=== PATIENT | female | born 1935 | race Caucasian/White ===

== ENCOUNTER 2017-08-03 12:00 | Inpatient (IN) ==
[2017-08-03 12:51] LABS: Basophils % 0.1 %; Eosinophils # 0.1 K/mcL (0.0-0.6); Eosinophils % 0.8 %; Hematocrit 37.5 % (35.3-44.9); Hemoglobin 11.1 g/dL (11.5-15.4); Immature Granulocytes % 0.5 % (0-4); Lymphocytes # 1.6 K/mcL (0.6-4.6); Lymphocytes % 20.9 %; Mean Corpuscular HGB Conc 29.6 g/dL (31.6-35.5); Mean Corpuscular Hemoglobin 25.1 pg (28.0-33.3); Mean Corpuscular Volume 84.8 fL (83.0-100.0); Mean Platelet Volume 11.8 fL (9.4-12.4); Monocytes # 0.6 K/mcL (0.0-1.3); Monocytes % 8.4 %; Neutrophils # 5.1 K/mcL (1.6-8.9); Platelet Count 160 K/mcL (140-400); Red Blood Count 4.42 M/mcL (3.82-4.97); Red Cell Distribution Width 15.8 % (11.5-14.5); Segmented Neutrophils % 69.3 %
[2017-08-03 13:04] LABS: BUN/Creatinine Ratio 20 (6-26); Blood Urea Nitrogen 16 mg/dL (7-20); Calcium 8.1 mg/dL (8.6-10.8); Carbon Dioxide 27 mEq/L (19-29); Chloride 102 mEq/L (98-109); Glucose 169 mg/dL (70-99); Osmolality,Calculated 285 (280-300); Potassium 4.2 mEq/L (3.5-4.5); Sodium 135 mEq/L (136-145); eGFR For African Americans > 60 (> 60); eGFR For Non-African Americans > 60 (> 60)
[2017-08-03 13:53] LABS: Bilirubin,Urine Negative (Negative); Blood,Urine Negative (Negative); Clarity,Urine Clear (Clear); Color,Urine Yellow (Yellow); Glucose,Urine (UA) Normal (Normal); Ketones,Urine Negative (Negative); Leukocyte Esterase,Urine Negative (Negative); Nitrite,Urine Negative (Negative); PH,Urine 6.5 pH Units (5.0-8.0); Protein,Urine Negative (Neg-Trace); Specific Gravity,Urine 1.012 (1.010-1.025); Urobilinogen,Urine Normal (Normal)
--- NOTE | 2017-08-03 14:52 | Emergency Department Note ---
Disposition Clinical Impression: Lower extremity edema Atrial fibrillation Qualifiers: Atrial fibrillation type: unspecified Qualified Code(s): I48.91 - Unspecified atrial fibrillation Disposition: Admitted As Inpatient Condition: Good Extremity Problem HPI - General Chief complaint: ED Extremity Problem,Nontraumatic Stated complaint: Bilateral leg swelling Time Seen by Provider: 08/03/17 12:08 Source: patient Mode of arrival: ambulatory Limitations: physical limitation Nursing Notes Reviewed: Yes Vital Signs Reviewed: Yes - History of Present Illness Pain Scale: 0 - Related Data Home Medications Medication Instructions Recorded Confirmed Cyclosporine [Restasis] 1 each OP BID 01/07/16 08/03/17 Metoprolol XL (24 HR) Succ [Toprol 50 mg PO DAILY 01/07/16 08/03/17 Xl] Phenytoin ER [Dilantin ER] 400 mg PO DAILY 01/07/16 08/03/17 Prazosin [Minipress] 1 mg PO BID 01/07/16 08/03/17 Sertraline [Zoloft] 100 mg PO DAILY 01/07/16 08/03/17 Cyanocobalamin (Vitamin B-12) 1,000 mcg PO DAILY 08/03/17 08/03/17 [Vitamin B12] Furosemide [Lasix] 40 mg PO DAILY 08/03/17 08/03/17 Glimepiride [Amaryl] 4 mg PO BID 08/03/17 08/03/17 Levothyroxine [Synthroid] 50 mcg PO 0630 08/03/17 08/03/17 Potassium Chloride [K-Tab ER] 20 meq PO DAILY 08/03/17 08/03/17 Allergies Allergy/AdvReac Type Severity Reaction Status Date / Time No Known Allergies Allergy Verified 01/07/16 15:15 Past Medical History - Past Medical History Medical history: Reports: COPD, CVA, diabetes, hyperlipidemia, hypertension, myocardial infarction, thyroid disease Surgical history: Reports: orthopedic, other, ARIANNA/BSO Psychiatric history: Reports: anxiety, depression - Social History Smoking Status: Former smoker Smokeless Tobacco Status: No Alcohol use: Reports: none Drug use: Reports: none Physical Exam - General Limitations: physical limitation General appearance: alert Course Vital Signs Temperature 97.9 F 08/03/17 12:03 Pulse Rate 99 08/03/17 12:03 Respiratory Rate 18 08/03/17 12:03 Blood Pressure 127/81 08/03/17 12:03 O2 Sat by Pulse Oximetry 90 08/03/17 12:03 Temperature 98.0 F 08/03/17 20:29 Pulse Rate 107 08/03/17 20:29 Respiratory Rate 16 08/03/17 20:29 Blood Pressure 124/58 08/03/17 20:29 O2 Sat by Pulse Oximetry 94 08/03/17 20:29 Oxygen Delivery Oxygen Delivery Room Air Extremity Problem, Nontraumati - [facility] Narrative Medical decision making narrative: Patient states that she is weak and fatigued. She states that her bilateral lower extremities are significantly more edematous. A formal ultrasound of the bilateral lower extremities was ordered to rule out DVT however this was a technically difficult study and they were unable to completely visualize the deep venous vasculature. Patient does have new onset atrial fibrillation. She however is already on Coumadin and is rate controlled. Patient will be admitted for further evaluation of her weakness and bilateral lower extremity edema for likely diuresis. - Medical Records Medical records reviewed: Yes I reviewed the patient's medical records. - Lab Data Lab results reviewed: Yes I reviewed the patient's lab results. Result diagrams: 08/03/17 12:37 08/03/17 12:37 Lab Results 08/03/17 08/03/17 08/03/17 Range/Units 12:37 12:37 12:37 WBC 7.4 (4.3-11.1) K/mcL RBC 4.42 (3.82-4.97) M/mcL Hgb 11.1 L (11.5-15.4) g/dL Hct 37.5 (35.3-44.9) % MCV 84.8 (83.0-100.0) fL MCH 25.1 L (28.0-33.3) pg MCHC 29.6 L (31.6-35.5) g/dL RDW 15.8 H (11.5-14.5) % Plt Count 160 (140-400) K/mcL MPV 11.8 (9.4-12.4) fL Immature Gran % 0.5 (0-4) % Seg Neutrophils % 69.3 % Lymphocytes % 20.9 % Monocytes % 8.4 % Eosinophils % 0.8 % Basophils % 0.1 % Neutrophils # 5.1 (1.6-8.9) K/mcL Lymphocytes # 1.6 (0.6-4.6) K/mcL Monocytes # 0.6 (0.0-1.3) K/mcL Eosinophils # 0.1 (0.0-0.6) K/mcL Basophils # 0.0 (0.0-0.2) K/mcL PT (9.4-12.1) Seconds INR APTT (26.0-36.0) Seconds Sodium 135 L (136-145) mEq/L Potassium 4.2 (3.5-4.5) mEq/L Chloride 102 (98-109) mEq/L Carbon Dioxide 27 (19-29) mEq/L BUN 16 (7-20) mg/dL Creatinine 0.79 (0.57-1.11) mg/dL Est GFR ( Amer) > 60 (> 60) Est GFR (Non-Af Amer) > 60 (> 60) BUN/Creatinine Ratio 20 (6-26) Glucose 169 H (70-99) mg/dL Calculated Osmolality 285 (280-300) Calcium 8.1 L (8.6-10.8) mg/dL Troponin I (0-0.03) ng/mL B-Natriuretic Peptide 141 H (0-100) pg/mL Urine Color (Yellow) Urine Clarity (Clear) Urine pH (5.0-8.0) pH Units Ur Specific [place] (1.010-1.025) Urine Protein (Neg-Trace) mg/dL Urine Glucose (UA) (Normal) mg/dL Urine Ketones (Negative) mg/dL Urine Blood (Negative) Urine Nitrite (Negative) Urine Bilirubin (Negative) Urine Urobilinogen (Normal) mg/dL Ur Leukocyte Esterase (Negative) Ur Culture Indicated? (NO) 08/03/17 08/03/17 08/03/17 Range/Units 12:37 12:37 13:34 WBC (4.3-11.1) K/mcL RBC (3.82-4.97) M/mcL Hgb (11.5-15.4) g/dL Hct (35.3-44.9) % MCV (83.0-100.0) fL MCH (28.0-33.3) pg MCHC (31.6-35.5) g/dL RDW (11.5-14.5) % Plt Count (140-400) K/mcL MPV (9.4-12.4) fL Immature Gran % (0-4) % Seg Neutrophils % % Lymphocytes % % Monocytes % % Eosinophils % % Basophils % % Neutrophils # (1.6-8.9) K/mcL Lymphocytes # (0.6-4.6) K/mcL Monocytes # (0.0-1.3) K/mcL Eosinophils # (0.0-0.6) K/mcL Basophils # (0.0-0.2) K/mcL PT 30.3 H (9.4-12.1) Seconds INR 2.8 APTT 45.4 H (26.0-36.0) Seconds Sodium (136-145) mEq/L Potassium (3.5-4.5) mEq/L Chloride (98-109) mEq/L Carbon Dioxide (19-29) mEq/L BUN (7-20) mg/dL Creatinine (0.57-1.11) mg/dL Est GFR ( Amer) (> 60) Est GFR (Non-Af Amer) (> 60) BUN/Creatinine Ratio (6-26) Glucose (70-99) mg/dL Calculated Osmolality (280-300) Calcium (8.6-10.8) mg/dL Troponin I 0.02 (0-0.03) ng/mL B-Natriuretic Peptide (0-100) pg/mL Urine Color Yellow (Yellow) Urine Clarity Clear (Clear) Urine pH 6.5 (5.0-8.0) pH Units Ur Specific [place] 1.012 (1.010-1.025) Urine Protein Negative (Neg-Trace) mg/dL Urine Glucose (UA) Normal (Normal) mg/dL Urine Ketones Negative (Negative) mg/dL Urine Blood Negative (Negative) Urine Nitrite Negative (Negative) Urine Bilirubin Negative (Negative) Urine Urobilinogen Normal (Normal) mg/dL Ur Leukocyte Esterase Negative (Negative) Ur Culture Indicated? NO (NO) - Radiology Data Radiology results reviewed: Yes I reviewed the patient's radiology results. - EKG Data EKG attestation: Yes I reviewed and interpreted this EKG. EKG results narrative: Atrial flutter versus fibrillation without RVR or evidence of STEMI
[2017-08-03 15:17] LABS: INR 2.8; Prothrombin Time 30.3 Seconds (9.4-12.1)
[2017-08-03 15:20] LABS: Activated Partial Thrombo Time 45.4 Seconds (26.0-36.0)
[2017-08-03] MEDS ORDERED: Furosemide 40 MG/4 ML VIAL IVP ONE (15:26)
--- NOTE | 2017-08-03 15:44 | Venous Imaging Report ---
LE Venous Duplex Patient Name:Piper Bernardo Order Number:[id number] Procedure Date:08/03/2017 Date:1935ge:82 yrs Gender:Female Location:[facility] ED Room #: ED33 Scalemaker:Liane Loving RDCS Referring MD:Robert Mack DO Reading MD:Davey Samano MD , FACS Primary Indications:LE edema r/o DVT Secondary Indications: Risk Factors Yes/No Hx of DVT Anticoagulants Impressions: Bilateral lower extremity: normal superficial and deep exam. Recommendations: Test completed on 08/03/2017 at 2:51:00 pm. Critical findings reported to Dr. Mack-ED- in person at 2:51:00 pm on 08/03/2017 by Liane Loving RDCS. Findings Venous Duplex Results: Left: The left common femoral, left superficial femoral, left posterior tibial, left peroneal and left lesser saphenous veins were not well visualized. Lower Extremity Venous Duplex Side Vein Compress Spontaneous Flow Augment Diameter (cm) Depth (cm) Right Distal Iliac Normal Yes Phasic Yes Right Common Femoral Normal Yes Phasic Yes Right Superficial Femoral Normal Yes Phasic Yes Right Popliteal Normal Yes Phasic Yes Right Posterior Tibial Normal Yes Phasic Yes Right Peroneal Normal Yes Phasic Yes Right Saphenofemoral [place] Normal Yes Phasic Yes Right Great Saphenous Normal Yes Phasic Yes Right Lesser Saphenous Normal Yes Phasic Yes Left Distal Iliac Normal Yes Phasic Yes Left Common Femoral Normal Yes Phasic Yes Left Superficial Femoral Normal Yes Phasic Yes Left Popliteal Normal Yes Phasic Yes Left Posterior Tibial Normal Yes Phasic Yes Left Peroneal Normal Yes Phasic Yes Left Saphenofemoral [place] Normal Yes Phasic Yes Left Great Saphenous Normal Yes Phasic Yes Left Lesser Saphenous Normal Yes Phasic Yes Updated by Davey Samano MD, FACS on 08/03/2017 3:38:51 PM Davey Samano MD electronically signed on 08/03/2017 3:39:05 PM with status of Final
[2017-08-03] MEDS ORDERED: Ondansetron 4 MG/2 ML VIAL IVP PRN (17:22)
[2017-08-03] MEDS ORDERED: Naloxone 0.4 MG/ML INJ IVP PRN (17:22)
[2017-08-03] MEDS ORDERED: Acetaminophen 325 MG TABLET PO PRN (17:22)
[2017-08-03] MEDS ORDERED: Ipratropium/Albuterol Neb 3 ML IH PRN (17:41)
--- NOTE | 2017-08-03 17:56 | Internal Med History&Physical ---
<Addi Frederick - Last Filed: 08/03/17 18:56> Date of Encounter: 08/03/17 Time of Encounter: 16:45 Assessment and Plan (1) Bilateral lower extremity edema Current visit: Yes Status: Acute Patient presents with severe bilateral pedal edema of the lower extremities. Patient reports she was recently placed on PO lasix 40 mg daily. Will hold patient's PO lasix and administer 40 mg IVP lasix BID. Muhammad catheter placed due to patient's request and residual left-sided paralysis from previous stroke in 2000. Monitor I&O and daily weight. 1.5L daily fluid restriction ordered. (2) Pneumonia Current visit: Yes Status: Acute Patient presents with suspected pneumonia of the left lower lung based on imaging taken today. 1-View CXR shows left lower lobe opacity with silhouetting of the left hemidiaphragm that may represent consolidation from pneumonia versus atelectasis and effusion. Patient denies recent hospitalization. Patient does have hx of COPD and is O2 dependent at home. IV Rocephin 1 gm daily and IV azithromycin 500 mg daily ordered for infection coverage. Blood cultures x2 ordered. Will monitor patient, culture results, and follow-up labs. Qualifiers: Pneumonia type: due to unspecified organism Laterality: left Lung location: lower lobe of lung Qualified Code(s): J18.1 - Lobar pneumonia, unspecified organism (3) Atrial fibrillation Current visit: Yes Status: Chronic Patient presents with history of chronic atrial fibrillation. Patient currently denies any chest pain or cardiac symptoms. Patient also has hx of DVTs, CVA and PR in 2000. Will continue patient's Coumadin with pharmacy dosing. Aspirin therapy daily. Patient placed on continuous cardiac telemetry. Repeat EKG. Echocardiogram ordered. Initial troponin 0.02. Will trend troponin x2. Qualifiers: Atrial fibrillation type: unspecified Qualified Code(s): I48.91 - Unspecified atrial fibrillation (4) Diabetes Current visit: Yes Status: Chronic Patient presents with history of chronic diabetes controlled by oral antihyperglycemic medications. Will hold patient's oral medications and administer low-dose correction insulin sliding scale with hypoglycemic protocol. Blood glucose monitoring ACHS. A1c ordered in a.m. labs. Qualifiers: Diabetes mellitus type: type 2 Diabetes mellitus complication status: with unspecified complications Diabetes mellitus terminal operations supervisor insulin use: without terminal operations supervisor use Qualified Code(s): E11.8 - Type 2 diabetes mellitus with unspecified complications (5) COPD (chronic obstructive pulmonary disease) Current visit: Yes Status: Chronic Patient presents with history of chronic obstructive pulmonary disease without current exacerbation. Patient placed on supplemental O2 with titration if SPO2 less than 92% and continuous SPO2 monitoring. DuoNebs Q6 PRN. Monitor patient and respiratory status. Qualifiers: COPD type: unspecified COPD Qualified Code(s): J44.9 - Chronic obstructive pulmonary disease, unspecified (6) HLD (hyperlipidemia) Current visit: Yes Status: Chronic Patient presents with history of chronic hyperlipidemia but is currently not on any statin medication. Lipid panel ordered in a.m. labs. Will consider adding Lipitor to medications based on lipid panel results. Qualifiers: Hyperlipidemia type: pure hypercholesterolemia Qualified Code(s): E78.00 - Pure hypercholesterolemia, unspecified; E78.0 - Pure hypercholesterolemia (7) HTN (hypertension) Current visit: Yes Status: Chronic Patient presents with history of chronic hypertension. Will monitor patient and vital signs and continue patient's prazosin and metoprolol. Qualifiers: Hypertension type: essential hypertension Qualified Code(s): I10 - Essential (primary) hypertension (8) Thyroid disease Current visit: Yes Status: Chronic Patient presents with history of chronic thyroid disease. Will continue patient 's Synthroid. 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 Will continue patient's Coumadin with pharmacy dosing for anticoagulation therapy. Falls/safety precautions ordered. PT/OT consults ordered to assess patient for home needs for post-discharge planning. (10) DVT prophylaxis Current visit: Yes Status: Acute Patient to be placed on DVT prophylaxis due to current admission protocol and hx of DVT/CVA. Will continue patient's Coumadin with pharmacy dosing. Internal Medicine - H&P: HPI Chief complaint: Bilateral pedal edema Admitted From: Emergency Dept Plans for Post Hospital Care: Home History of present illness: Mrs. Bernardo is a 82 year old female with medical history of COPD, CVA in 2000, diabetes controlled with oral anti-hyperglycemics, hyperlipidemia, hypertension , previous PR in 2000, and thyroid disease presents from the ED with chief complaint of severe bilateral pedal edema which she reports has been worsening for the past several months. Patient reports being dependent on home O2 and having permanent left-sided paralysis from a stroke she suffered in 2000. Patient states that she cannot walk due to the paralysis. Patient also reports general weakness and shortness of breath related to her COPD but denies recent illness, fever, chills, nausea, vomiting, diarrhea, constipation, abdominal pain , chest pain, lightheadedness, dizziness, changes in vision, unusual bleeding, pre-syncope, or syncope. On admission, patient's pertinent abnormal labs include Hgb 11.1, sodium of 135, glucose of 169, calcium of 8.1, BNP of 141. Initial troponin 0.02. UA not indicative for culture. Venous Doppler of LEs was performed due to concern for DVTs but impression of bilateral extremities shows normal superficial and deep exam. 1-View CXR today shows cardiomegaly without overt pulmonary edema. Left lower lobe opacity with silhouetting of left hemidiaphragm may represent consolidation from pneumonia versus atelectasis and effusion. Upon assessment, patient is alert and oriented x3 and states that she is comfortable. HR is irregular with atrial fibrillation w/o RVR. Lungs have diminished breath sounds bilaterally and patient is using accessory muscles to breath. Patient is hemodynamically stable and report no acute distress. Information taken from patient, family, chart review, and previous medical records. Mrs. Bernardo is at high risk for further morbidity and respiratory distress based on current symptoms, severe bilateral pedal edema, history of atrial fibrillation, and history/risk factors and will be placed as inpatient status. Time spent with patient and family >40 minutes. Past Med Surg Social Fam HX - Past Medical History Source: patient, old records reviewed, obtained from family Medical history: COPD, CVA (2000), diabetes, hyperlipidemia, hypertension, myocardial infarction (2000), thyroid disease Psychiatric history: anxiety, depression - Past Surgical History Surgical History: appendectomy, cholecystectomy, herniorrhaphy, hysterectomy ( Total), orthopedic, other (Right and left leg), ARIANNA/BSO - Social History Smoking Status: Former smoker Packs per day: < 1/2 PPD - Reports quitting >38 years ago Smokeless Tobacco Status: No Alcohol use: none Drug use: none Current living situation: Home, With Family Activity Level: Wheelchair bound Recent Out of Country Travel Within the Last 8 Weeks: No Exposure or Possible Exposure to Illness During Travel: No - Family History Mother Race: Family Member Ethnicity: Non- Living Status: Cause of : Old age Hx Family Medical Disorders: No Father Race: Family Member Ethnicity: Non- Living Status: Age at : 72 Cause of : PR Hx Family Cardiac Disorders: Yes (PR) Hx Family Cancer: Yes (Lung) Sister History Unknown: Yes Race: Family Member Ethnicity: Non- Living Status: Still Living Internal Medicine - H&P: Meds Cyclosporine [Restasis] 1 each OP BID 01/07/16 [History] Metoprolol XL (24 HR) Succ [Toprol Xl] 50 mg PO DAILY 01/07/16 [History] Phenytoin ER [Dilantin ER] 400 mg PO DAILY 01/07/16 [History] Prazosin [Minipress] 1 mg PO BID 01/07/16 [History] Sertraline [Zoloft] 100 mg PO DAILY 01/07/16 [History] Cyanocobalamin (Vitamin B-12) [Vitamin B12] 1,000 mcg PO DAILY 08/03/17 [History ] Furosemide [Lasix] 40 mg PO DAILY 08/03/17 [History] Glimepiride [Amaryl] 4 mg PO BID 08/03/17 [History] Levothyroxine [Synthroid] 50 mcg PO 0630 08/03/17 [History] Potassium Chloride [K-Tab ER] 20 meq PO DAILY 08/03/17 [History] 3 Allergy/AdvReac Type Severity Reaction Status Date / Time No Known Allergies Allergy Verified 01/07/16 15:15 All Systems PM: A 10-system review of systems was performed and is negative for pertinent findings except as documented above in the HPI. - Constitutional Constitutional: as per HPI, weakness, no chills, no fever(s), no night sweats - EENT Eyes: no change in vision, no discharge, no pain, no photophobia Ears: no ear discharge, no ear pain, no tinnitus Nose, mouth and throat: no dysphagia, no nasal discharge, no neck pain, no sore throat - Breasts Breasts: as per HPI - Cardiovascular Cardiovascular ROS IM: as per HPI, irregular heart rhythm (Atrial fibrillation) - Respiratory Respiratory: as per HPI, dyspnea, dyspnea on exertion - Gastrointestinal Gastrointestinal: no abdominal pain, no diarrhea, no hematemesis, no hematochezia, no melena, no nausea, no vomiting - Genitourinary Genitourinary: no change in urinary stream, no dysuria, no flank pain, no hematuria Menstruation: as per HPI, post hysterectomy - Musculoskeletal Musculoskeletal ROS IM: no numbness, no tingling - Integumentary Integumentary IM: no rash, no unusual bruising - Neurological Neurological ROS: no confusion, no convulsions, no focal weakness, no numbness, no tingling, no tremor(s) - Psychiatric Psychiatric: as per HPI - Endocrine Endocrine IM: as per HPI - Hematologic/Lymphatic Hematologic/Lymphatic: no easy bruising - Allergic/Immunologic Allergic/Immunologic: as per HPI - Constitutional Vitals: Temp Pulse Resp BP Pulse Ox 97.5 F L 89 18 158/99 91 08/03/17 16:54 08/03/17 16:54 08/03/17 16:54 08/03/17 16:54 08/03/17 16:54 General appearance: Present: cooperative, A&O X 3, morbidly obese, pleasant, no acute distress, answers questions appropriately - Head Head exam: Present: atraumatic, normocephalic - Eye Eye exam: Present: PERRL, conjuntiva pink, sclera anicteric Pupils: Present: PERRL - ENT ENT exam: Present: normal exam, normal external ear exam - Neck Neck exam general surgery: Present: normal inspection, supple, trachea midline. Absent: lymphadenopathy - Respiratory Respiratory exam: Present: accessory muscle use, decreased breath sounds - Cardiovascular Cardiovascular exam: Present: irregular rhythm (Atrial fibrillation) - GI/Abdominal GI/Abdominal exam: Present: normal bowel sounds, soft, no peritoneal signs. Absent: distended, tenderness - Rectal Rectal exam: Present: deferred - Additional comments: exam deferred. - Extremities Exam Extremities exam: Present: pedal edema (Bilateral severe pitting edema of LEs that extends up to the thighs) - Back Exam Back exam: Present: normal inspection - Neurological Exam Neurological exam: Present: CN II-XII intact, oriented X3 Additional comments: Patient has left-sided paralysis that is residual from a stroke suffered in 2000. - Psychiatric Psychiatric exam: Present: normal affect, normal mood - Skin Skin exam: Present: dry, intact Internal Med - H&P Results - Labs CBC & Chem 7: 08/03/17 12:37 08/03/17 12:37 - EKG Data Prior EKG available for review: yes Interpretation IM: suggestive of ischemia EKG comments: 08/03/17 18:20 EKG dated 03/17/16 shows sinus rhythm with first-degree AV block, low QRS voltage in precordial leads, possible right ventricular conduction delay, and septal myocardial infarction of indeterminate age. EKG dated 08/03/17 shows atrial fibrillation with right bundle branch block, anterior myocardial infarction of indeterminate age, and inferior myocardial infarction (probably old). - Diagnostic Studies Chest x-ray Additional comments: Impressions Chest X-Ray 08/03/17 12:09 IMPRESSION: Cardiomegaly without overt pulmonary edema. Left lower lobe opacity with silhouetting of the left hemidiaphragm that may represent consolidation from pneumonia versus atelectasis and effusion. D/ / Ky Car MD / Ky Car MD Interpreting Provider: Ky Car MD <Brady Benjamin - Last Filed: 08/03/17 19:10> Date of Encounter: 08/03/17 Internal Medicine - H&P: HPI History of present illness: Ms. Bernardo is a 82 year old female All Systems PM: A 10-system review of systems was performed and is negative for pertinent findings except as documented above in the HPI. - Constitutional Vitals: Temp Pulse Resp BP Pulse Ox 97.5 F L 89 18 158/99 91 08/03/17 16:54 08/03/17 16:54 08/03/17 16:54 08/03/17 16:54 08/03/17 16:54 Internal Med - H&P Results - Labs CBC & Chem 7: 08/03/17 12:37 08/03/17 12:37 - Attending Attestation I examined this patient and my medical decision-making was reviewed with the DIE ATTACHER. I agree with the documented findings, disposition and treatment plan as described except to the extent set forth below. Patient is a 82-year-old female with past medical history of diabetes, atrial fibrillation, COPD, hypertension, hyperlipidemia, history of CVA with left- sided hemiparesis. Patient presents to the ED with complaint of worsening bilateral leg edema. Patient is mostly bedbound secondary to paralysis from CVA. Patient is being admitted for bilateral leg edema and possible pneumonia. Patient has no other acute complaints at this time. Heart rate 89, blood pressure 158/99, O2 91% on 2 L. Heart S1 and S2 positive. Lungs bilateral good entry no wheeze or crackle. Abdomen soft, nontender. Extremities PULSES strong, bilateral lower leg 4+ pitting edema worse on the left side.
[2017-08-03] MEDS: Pantoprazole 40 MG VIAL IVP SCH (17:58)
[2017-08-03] MEDS ORDERED: Warfarin perPT PO PRN (18:00)
[2017-08-03] MEDS ORDERED: Azithromycin 500 MG in D5% in Water 250 ML IVPB SCH (19:00)
[2017-08-03] MEDS ORDERED: *HR* Warfarin 5 MG TABLET PO SCH (19:00)
[2017-08-03] MEDS: Aspirin 81 MG TAB.CHEW PO SCH (19:20)
[2017-08-03] MEDS: Furosemide 40 MG/4 ML VIAL IVP SCH (21:55)
[2017-08-03] MEDS ORDERED: *HR* Heparin 5,000 UNIT/ML VIAL SQ SCH (22:00)
[2017-08-03] MEDS: CYCLOSPORINE OPTH OP SCH (22:42)
[2017-08-04 01:22] LABS: Basophils % 0.2 %; Eosinophils # 0.1 K/mcL (0.0-0.6); Eosinophils % 1.3 %; Hematocrit 33.4 % (35.3-44.9); Hemoglobin 10.2 g/dL (11.5-15.4); Immature Granulocytes % 0.4 % (0-4); Lymphocytes # 1.9 K/mcL (0.6-4.6); Lymphocytes % 23.3 %; Mean Corpuscular HGB Conc 30.5 g/dL (31.6-35.5); Mean Corpuscular Hemoglobin 25.4 pg (28.0-33.3); Mean Corpuscular Volume 83.3 fL (83.0-100.0); Mean Platelet Volume 12.4 fL (9.4-12.4); Monocytes # 0.9 K/mcL (0.0-1.3); Monocytes % 10.7 %; Neutrophils # 5.3 K/mcL (1.6-8.9); Platelet Count 163 K/mcL (140-400); Red Blood Count 4.01 M/mcL (3.82-4.97); Red Cell Distribution Width 15.8 % (11.5-14.5); Segmented Neutrophils % 64.1 %
[2017-08-04 01:33] LABS: INR 2.8; Prothrombin Time 30.7 Seconds (9.4-12.1)
[2017-08-04 01:35] LABS: Activated Partial Thrombo Time 45.4 Seconds (26.0-36.0)
[2017-08-04 01:39] LABS: Alanine Aminotransferase 14 Units/L (0-55); Albumin 2.2 g/dL (3.5-5.0); Albumin/Globulin Ratio 0.7 (1.1-2.2); Alkaline Phosphatase 197 Units/L (38-126); Aspartate Amino Transferase 13 Units/L (5-34); BUN/Creatinine Ratio 20 (6-26); Bilirubin,Total 0.3 mg/dL (0.2-1.2); Blood Urea Nitrogen 17 mg/dL (7-20); Calcium 7.7 mg/dL (8.6-10.8); Carbon Dioxide 27 mEq/L (19-29); Chloride 104 mEq/L (98-109); Chol/HDL Ratio 4.2 (0-4.9); Cholesterol 151 mg/dL (< 200); Glucose 187 mg/dL (70-99); HDL Cholesterol 36 mg/dL (40-59); LDL Cholesterol,Calculated 100 mg/dL (0-99); Magnesium 1.5 mg/dL (1.6-2.6); Osmolality,Calculated 292 (280-300); Potassium 3.7 mEq/L (3.5-4.5); Sodium 138 mEq/L (136-145); Total Protein 5.2 g/dL (6.0-8.3); Triglycerides 77 mg/dL (< 150); eGFR For African Americans > 60 (> 60); eGFR For Non-African Americans > 60 (> 60)
[2017-08-04 02:50] LABS: Hemoglobin A1C 6.1 %
[2017-08-04] MEDS: Aspirin 81 MG TAB.CHEW PO SCH (08:31)
[2017-08-04] MEDS: Metoprolol XL (24 HR) Succ 50 MG TAB.ER.24H PO SCH (08:31)
[2017-08-04] MEDS: Magnesium Oxide 400 MG TABLET PO SCH (08:31)
[2017-08-04] MEDS: Pantoprazole 40 MG VIAL IVP SCH (08:32)
[2017-08-04] MEDS: Cyanocobalamin (B-12) 1,000 MCG TABLET PO SCH (08:32)
[2017-08-04] MEDS: CYCLOSPORINE OPTH OP SCH (08:32)
[2017-08-04] MEDS: Furosemide 40 MG/4 ML VIAL IVP SCH ×2 (08:32→21:43)
--- NOTE | 2017-08-04 09:48 | Internal Med Progress Note ---
Date of Encounter: 08/04/17 Time of Encounter: 08:25 - Assessment and plan (1) Community acquired pneumonia Current Visit: Yes Status: Acute Assessment and plan: Per chest xray. Pt denies recent hospitalization or ECF stay. Denies new cough. No leukocytosis or fever, pt is not requiring more 02 than baseline need of 2L. Lungs are clear. Continue IV antibiotics Rocephin and Zithromax Nebulizer treatments Continuous pulse ox Maintain 2L 02, titrate to maintain sats >92% Qualifiers: Laterality: left Lung location: lower lobe of lung Qualified Code(s): J18.1 - Lobar pneumonia, unspecified organism (2) Chronic respiratory failure Current Visit: Yes Status: Acute Assessment and plan: Pt requires 2L 02 at home for baseline. Will continue and titrate as needed to maintain sats > 92%. Qualifiers: Respiratory failure complication: unspecified whether with hypoxia or hypercapnia Qualified Code(s): J96.10 - Chronic respiratory failure, unspecified whether with hypoxia or hypercapnia (3) Non-insulin dependent type 2 diabetes mellitus Current Visit: No Status: Chronic Assessment and plan: A1c 6.1. Continue SSI, accuchecks achs, and diabetic diet. (4) Bilateral lower extremity edema Current Visit: Yes Status: Acute Assessment and plan: Pt has +4 pitting edema to BLE, onset February. Pt states that it has been increasing since that time, and edema is unchanged from normal. She was recently placed on Lasix at home. Pt had an echo in 01/2016 that shows LVEF 50% with normal LV function, mild LVDD, atypical septal motion, no significant valvular dysfunction. Lasix 40mg IVP bid Low Sodium diet. 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 Fall plrecautions/bed alarm Close to nurses' station. (6) Atrial fibrillation Current Visit: Yes Status: Chronic Assessment and plan: Pt presents with chronic afib and is anticoagulated on Coumadin. Pt states that she is unaware that she has an irregular heart rate. I am unable to find any prior documentation indicating that she has afib. Continue telemetry Echo results pending Continue Coumadin, pharmacy to dose. Qualifiers: Atrial fibrillation type: unspecified Qualified Code(s): I48.91 - Unspecified atrial fibrillation (7) Morbid obesity with BMI of 45.0-49.9, adult Current Visit: Yes Status: Acute Assessment and plan: Chronic. Lifestyle changes. Continue diabetic diet, low sodium diet, and fluid restriction. Pt also needs caloric restriction, as well. (8) Hypomagnesemia Current Visit: Yes Status: Acute Assessment and plan: Mag 1.5. Give Mag-Ox 400mg daily Continue to monitor. (9) Hypocalcemia Current Visit: Yes Status: Acute Assessment and plan: Calcium 7.7. Calcium carbonate 1000mg TID. Continue to monitor. (10) DVT prophylaxis Current Visit: Yes Status: Acute Assessment and plan: Pt is on Coumadin. Pharmacy to dose. INR is therapeutic. (11) COPD (chronic obstructive pulmonary disease) Current Visit: No Status: Chronic Assessment and plan: Plan as above for pneumonia. Qualifiers: COPD type: unspecified COPD Qualified Code(s): J44.9 - Chronic obstructive pulmonary disease, unspecified - Subjective Interval history: Pt was seen and assessed at 08. She had just returned from testing and was alert and awake, answers questions appropriately. She reports that she has had chronic edema to BLE that has been worse since February, currently unchanged from normal. She denies chest pain, n/v/d, abd pain, headache, vision changes, increased SOB over her baseline. She states that she was told by PCP to go to an ECF in February, but she did not want to at that time. Home Health RN encouraged pt to be admitted for ECF placement. Sleep Tech is consulted. She denies pain to BLE. - Constitutional Vitals: Temp Pulse Resp BP Pulse Ox 98.4 F 92 15 124/81 92 08/04/17 06:58 08/04/17 06:58 08/04/17 06:58 08/04/17 06:58 08/04/17 06:58 General appearance: Present: cooperative, A&O X 3, morbidly obese, pleasant, no acute distress, answers questions appropriately - Head Head exam: Present: atraumatic, normal inspection, normocephalic - Eye Eye exam: Present: conjuntiva pink, sclera anicteric - ENT ENT exam: Present: mucous membranes moist, normal exam, normal external ear exam - Neck Neck exam general surgery: Present: supple, trachea midline. Absent: lymphadenopathy - Respiratory Respiratory exam: Present: CTAB. Absent: accessory muscle use, rales, rhonchi, wheezes - Cardiovascular Cardiovascular exam: Present: irregular rhythm. Absent: diastolic murmur, gallop, rubs, systolic murmur, tachycardia - GI/Abdominal GI/Abdominal exam: Present: distended, normal bowel sounds, soft, no peritoneal signs. Absent: hepatomegaly, tenderness - Extremities Exam Extremities exam: Present: pedal edema, warm. Absent: calf tenderness, cyanotic , tenderness Additional comments: +4 pitting edema to BLE. - Neurological Exam Neurological exam: Present: alert, oriented X3. Absent: strengths equal and symetr throughout, facial droop, speech deficit - Skin Skin exam: Present: dry, intact, normal color, warm. Absent: rash Internal Medicine: Result - Labs CBC & Chem 7: 08/04/17 01:15 08/04/17 01:15 Labs: Short CBC 08/04/17 Range/Units 01:15 WBC 8.3 (4.3-11.1) K/mcL Hgb 10.2 L (11.5-15.4) g/dL Hct 33.4 L (35.3-44.9) % Plt Count 163 (140-400) K/mcL Neutrophils # 5.3 (1.6-8.9) K/mcL BMP 08/04/17 01:15 Sodium 138 Potassium 3.7 Chloride 104 Carbon Dioxide 27 BUN 17 Creatinine 0.87 Glucose 187 H Calcium 7.7 L Cardiac Enzymes 08/03/17 08/04/17 Range/Units 19:34 01:15 Troponin I 0.01 0.01 (0-0.03) ng/mL Liver Function 08/04/17 Range/Units 01:15 Total Bilirubin 0.3 (0.2-1.2) mg/dL AST 13 (5-34) Units/L ALT 14 (0-55) Units/L Alkaline Phosphatase 197 H (38-126) Units/L Albumin 2.2 L (3.5-5.0) g/dL - ABG Interpretation ABG results: PT/INR, D-dimer PT 30.7 Seconds (9.4-12.1) H 08/04/17 01:15 Consult Discharge Plan - Plan Referrals: NONE,PCP [Primary Care Provider] -
[2017-08-04] MEDS ORDERED: Dextrose Gel 15 GM PO PRN ×2 (11:08)
[2017-08-04] MEDS ORDERED: *HR* Dextrose 50 % in Water (Syg) 50 ML SYRINGE IVP PRN (11:08)
[2017-08-04] MEDS ORDERED: D5% in Water 1,000 ML IVC PRN (11:08)
[2017-08-04] MEDS: Insulin LISPRO 300 UNITS/3 ML VIAL SQ SCH ×3 (12:06→21:43)
[2017-08-04] MEDS: *HR* HYDROcodone/Acet 5/325 mg TABLET PO PRN (17:02)
[2017-08-04] MEDS ORDERED: *HR* Warfarin 4 MG TABLET PO ONE (18:00)
--- NOTE | 2017-08-04 18:32 | Electrocardiograph Report ---
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
[2017-08-04] MEDS: Azithromycin 500 MG in D5% in Water 250 ML IVPB SCH (21:44)
[2017-08-05 04:03] LABS: Prothrombin Time 33.4 Seconds (9.4-12.1)
[2017-08-05] MEDS: Insulin LISPRO 300 UNITS/3 ML VIAL SQ SCH ×3 (07:45→17:44)
[2017-08-05] MEDS: Pantoprazole 40 MG VIAL IVP SCH (09:24)
[2017-08-05] MEDS: Metoprolol XL (24 HR) Succ 50 MG TAB.ER.24H PO SCH (09:24)
[2017-08-05] MEDS: Magnesium Oxide 400 MG TABLET PO SCH (09:24)
[2017-08-05] MEDS: Furosemide 40 MG/4 ML VIAL IVP SCH ×2 (09:24→22:15)
[2017-08-05] MEDS: Cyanocobalamin (B-12) 1,000 MCG TABLET PO SCH (09:25)
[2017-08-05] MEDS: Aspirin 81 MG TAB.CHEW PO SCH (09:25)
--- NOTE | 2017-08-05 14:58 | Internal Med Progress Note ---
Date of Encounter: 08/05/17 Time of Encounter: 09:00 - Assessment and plan (1) Community acquired pneumonia Current Visit: Yes Status: Acute Assessment and plan: Per chest xray. Pt denies recent hospitalization or ECF stay. Denies new cough. No leukocytosis or fever, pt is not requiring more 02 than baseline need of 2L. Lungs are clear. Unknown etiology. Continue IV antibiotics Rocephin and Zithromax Nebulizer treatments Continuous pulse ox Maintain 2L 02, titrate to maintain sats >92% Qualifiers: Laterality: left Lung location: lower lobe of lung Qualified Code(s): J18.1 - Lobar pneumonia, unspecified organism (2) Chronic respiratory failure Current Visit: Yes Status: Acute Assessment and plan: Pt requires 2L 02 at home for baseline. Will continue and titrate as needed to maintain sats > 92%. Qualifiers: Respiratory failure complication: unspecified whether with hypoxia or hypercapnia Qualified Code(s): J96.10 - Chronic respiratory failure, unspecified whether with hypoxia or hypercapnia (3) Non-insulin dependent type 2 diabetes mellitus Current Visit: No Status: Chronic Assessment and plan: A1c 6.1. Continue SSI, accuchecks achs, and diabetic diet. Accuchecks are only slightly elevated. Continue to monitor. (4) Bilateral lower extremity edema Current Visit: Yes Status: Acute Assessment and plan: Pt has +4 pitting edema to BLE, onset February,. Pt states that it has improved since arrival due to the fact that she can move her toes no. There is no appreciable visible difference. She was recently placed on Lasix at home. Pt had an echo in 01/2016 that shows LVEF 50% with normal LV function, mild LVDD , atypical septal motion, no significant valvular dysfunction. Lasix 40mg IVP bid Low Sodium diet. 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 Fall plrecautions/bed alarm Close to nurses' station. Pt unable to use left side slince CVA. (6) Atrial fibrillation Current Visit: Yes Status: Chronic Assessment and plan: LVEF 50-55% with mild MR and PFO present. Continue telemetry INR therapeutic today 3.0 Continue Coumadin, pharmacy to dose. Qualifiers: Atrial fibrillation type: unspecified Qualified Code(s): I48.91 - Unspecified atrial fibrillation (7) Morbid obesity with BMI of 45.0-49.9, adult Current Visit: Yes Status: Acute Assessment and plan: Chronic. Lifestyle changes. Continue diabetic diet, low sodium diet, and fluid restriction. Pt also needs caloric restriction, as well. (8) Hypomagnesemia Current Visit: Yes Status: Acute (9) Hypocalcemia Current Visit: Yes Status: Acute (10) DVT prophylaxis Current Visit: Yes Status: Acute Assessment and plan: Continue Coumadin, therapeutic today at 3.0. ISADORA cole also ordered to help with edema. (11) COPD (chronic obstructive pulmonary disease) Current Visit: No Status: Chronic Assessment and plan: Plan as above for pneumonia. Qualifiers: COPD type: unspecified COPD Qualified Code(s): J44.9 - Chronic obstructive pulmonary disease, unspecified - Time Spent With Patient less than 15 minutes - Subjective Interval history: Pt was seen and assessed at 0900. Patient was alert and awake. She denies any chest pain, abdominal pain, nausea vomiting or diarrhea, no headaches. She states that she notices a difference in the amount of edema in her legs and states that she is able to move her toes, which she has not been able to do for several months. - Constitutional Vitals: Temp Pulse Resp BP Pulse Ox 98.3 F 80 18 113/68 97 08/05/17 11:56 08/05/17 11:56 08/05/17 11:56 08/05/17 11:56 08/05/17 11:56 General appearance: Present: cooperative, A&O X 3, morbidly obese, pleasant, no acute distress, answers questions appropriately - Head Head exam: Present: atraumatic, normal inspection, normocephalic - Eye Eye exam: Present: conjuntiva pink, sclera anicteric - Neck Neck exam general surgery: Present: supple, trachea midline. Absent: lymphadenopathy, tenderness - Respiratory Respiratory exam: Present: CTAB. Absent: accessory muscle use, chest wall tenderness, rales, rhonchi, wheezes - Cardiovascular Cardiovascular exam: Present: RRR, +S1, +S2. Absent: diastolic murmur, gallop, rubs, systolic murmur - GI/Abdominal GI/Abdominal exam: Present: normal bowel sounds, soft, no peritoneal signs. Absent: distended, tenderness - Extremities Exam Extremities exam: Present: warm, radial pulses palpable and symmetrical. Absent : calf tenderness, cyanotic, pedal edema - Neurological Exam Neurological exam: Present: alert, motor sensory deficit, oriented X3. Absent: strengths equal and symetr throughout, facial droop, speech deficit - Skin Skin exam: Present: dry, intact, normal color, warm. Absent: rash Internal Medicine: Result - Labs CBC & Chem 7: 08/04/17 01:15 08/04/17 01:15 - ABG Interpretation ABG results: PT/INR, D-dimer PT 33.4 Seconds (9.4-12.1) H 08/05/17 03:32 Consult Discharge Plan - Plan Referrals: NONE,PCP [Primary Care Provider] - Addi Rivero DO [Partnered Physician] - 08/09/17 12:00 pm
[2017-08-05] MEDS ORDERED: *HR* Warfarin 4 MG TABLET PO ONE (18:00)
[2017-08-05] MEDS: Azithromycin 500 MG in D5% in Water 250 ML IVPB SCH (22:09)
[2017-08-06] MEDS: Insulin LISPRO 300 UNITS/3 ML VIAL SQ SCH ×4 (01:19→17:20)
[2017-08-06 04:37] LABS: Basophils % 0.2 %; Eosinophils # 0.2 K/mcL (0.0-0.6); Eosinophils % 2.1 %; Hematocrit 34.9 % (35.3-44.9); Hemoglobin 10.3 g/dL (11.5-15.4); Immature Granulocytes % 0.5 % (0-4); Lymphocytes # 2.1 K/mcL (0.6-4.6); Lymphocytes % 24.6 %; Mean Corpuscular HGB Conc 29.5 g/dL (31.6-35.5); Mean Corpuscular Hemoglobin 24.8 pg (28.0-33.3); Mean Corpuscular Volume 83.9 fL (83.0-100.0); Mean Platelet Volume 12.6 fL (9.4-12.4); Monocytes # 0.9 K/mcL (0.0-1.3); Monocytes % 10.2 %; Neutrophils # 5.3 K/mcL (1.6-8.9); Platelet Count 166 K/mcL (140-400); Red Blood Count 4.16 M/mcL (3.82-4.97); Red Cell Distribution Width 15.7 % (11.5-14.5); Segmented Neutrophils % 62.4 %
[2017-08-06 04:52] LABS: BUN/Creatinine Ratio 22 (6-26); Blood Urea Nitrogen 20 mg/dL (7-20); Calcium 7.6 mg/dL (8.6-10.8); Carbon Dioxide 29 mEq/L (19-29); Chloride 102 mEq/L (98-109); Glucose 96 mg/dL (70-99); Osmolality,Calculated 292 (280-300); Sodium 140 mEq/L (136-145); eGFR For African Americans > 60 (> 60); eGFR For Non-African Americans > 60 (> 60)
[2017-08-06 04:53] LABS: Potassium 3.9 mEq/L (3.5-4.5)
[2017-08-06 05:25] LABS: INR 3.1; Prothrombin Time 34.6 Seconds (9.4-12.1)
[2017-08-06] MEDS: *HR* HYDROcodone/Acet 5/325 mg TABLET PO PRN (06:17)
[2017-08-06] MEDS: Cyanocobalamin (B-12) 1,000 MCG TABLET PO SCH (08:11)
[2017-08-06] MEDS: Magnesium Oxide 400 MG TABLET PO SCH (08:11)
[2017-08-06] MEDS: Aspirin 81 MG TAB.CHEW PO SCH (08:11)
[2017-08-06] MEDS: Metoprolol XL (24 HR) Succ 50 MG TAB.ER.24H PO SCH (08:11)
[2017-08-06] MEDS: Furosemide 40 MG/4 ML VIAL IVP SCH ×2 (08:12→21:39)
[2017-08-06] MEDS: Pantoprazole 40 MG VIAL IVP SCH (08:12)
--- NOTE | 2017-08-06 09:03 | Internal Med Progress Note ---
Date of Encounter: 08/06/17 Time of Encounter: 07:40 - Assessment and plan (1) Community acquired pneumonia Current Visit: Yes Status: Acute Assessment and plan: Per chest xray. Denies cough. No leukocytosis or fever, pt is not requiring more 02 than baseline need of 2L. Lungs are clear. Unknown etiology. Continue IV antibiotics Rocephin and Zithromax Nebulizer treatments Continuous pulse ox Maintain 2L 02, titrate to maintain sats >92% Qualifiers: Laterality: left Lung location: lower lobe of lung Qualified Code(s): J18.1 - Lobar pneumonia, unspecified organism (2) Chronic respiratory failure Current Visit: Yes Status: Acute Assessment and plan: Pt requires 2L 02 at home for baseline. Continue and titrate as needed to maintain sats > 92%. Qualifiers: Respiratory failure complication: unspecified whether with hypoxia or hypercapnia Qualified Code(s): J96.10 - Chronic respiratory failure, unspecified whether with hypoxia or hypercapnia (3) Non-insulin dependent type 2 diabetes mellitus Current Visit: No Status: Chronic Assessment and plan: Continue SSI, accuchecks achs, and diabetic diet. Accuchecks are only slightly elevated. Continue to monitor. (4) Bilateral lower extremity edema Current Visit: Yes Status: Acute Assessment and plan: Pt has +4 pitting edema to BLE. Pt reports that this is chronic, with onset of a year ago. She states that her left foot has been chronically edematous since CVA in 2001. There is no appreciable visible difference since arrival, however, the edema does seem to pit more easily. She was recently placed on Lasix at home. Pt had an echo in 01/2016 that shows LVEF 50% with normal LV function, mild LVDD, atypical septal motion, no significant valvular dysfunction. I have ordered another BNP today. Results pending. Lasix 40mg IVP bid Low Sodium diet. 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 Continue Coumadin Fall precautions/bed alarm Close to nurses' station. Pt unable to use left side slince CVA. (6) Atrial fibrillation Current Visit: Yes Status: Chronic Assessment and plan: LVEF 50-55% with mild MR and PFO present. Continue telemetry INR therapeutic today 3.1 Continue Coumadin, pharmacy to dose. Qualifiers: Atrial fibrillation type: unspecified Qualified Code(s): I48.91 - Unspecified atrial fibrillation (7) Morbid obesity with BMI of 45.0-49.9, adult Current Visit: Yes Status: Acute Assessment and plan: Chronic. Lifestyle changes. Continue diabetic diet, low sodium diet, and fluid restriction. Pt also needs caloric restriction, as well. (8) Hypomagnesemia Current Visit: Yes Status: Acute Assessment and plan: Give Mag-Ox 400mg daily Continue to monitor. Redraw in a.m. (9) Hypocalcemia Current Visit: Yes Status: Acute Assessment and plan: Calcium 7.6. Increased Calcium carbonate to 1000mg QID. Continue to monitor. (10) COPD (chronic obstructive pulmonary disease) Current Visit: No Status: Chronic Assessment and plan: Plan as above for pneumonia. Qualifiers: COPD type: unspecified COPD Qualified Code(s): J44.9 - Chronic obstructive pulmonary disease, unspecified (11) DVT prophylaxis Current Visit: Yes Status: Acute Assessment and plan: Continue Coumadin, therapeutic today at 3.1. ISADORA hose removed today due to lack of results and pt complained of pain. - Time Spent With Patient less than 15 minutes - Subjective Interval history: Pt was seen and assessed at 0740. Patient was sleeping. She denies any chest pain, abdominal pain, nausea vomiting or diarrhea, no headaches. Today she states that she has left foot pain. ISADORA hose have been removed. She states that she is ready to go to the residential. - Constitutional Vitals: Temp Pulse Resp BP Pulse Ox 98 F 98 14 114/68 92 08/06/17 07:34 08/06/17 07:34 08/06/17 07:34 08/06/17 07:34 08/06/17 07:34 General appearance: Present: cooperative, A&O X 3, morbidly obese, pleasant, no acute distress, answers questions appropriately - Head Head exam: Present: normal inspection - Eye Eye exam: Present: conjuntiva pink, sclera anicteric - Neck Neck exam general surgery: Present: normal inspection, supple, trachea midline. Absent: lymphadenopathy, tenderness - Respiratory Respiratory exam: Present: CTAB. Absent: accessory muscle use, rales, rhonchi, wheezes - Cardiovascular Cardiovascular exam: Present: RRR, +S1, +S2. Absent: diastolic murmur, gallop, rubs, systolic murmur - GI/Abdominal GI/Abdominal exam: Present: normal bowel sounds, soft, no peritoneal signs. Absent: distended, hepatomegaly, tenderness - Extremities Exam Extremities exam: Present: warm, radial pulses palpable and symmetrical. Absent : calf tenderness, cyanotic, pedal edema - Neurological Exam Neurological exam: Present: alert, oriented X3, no focal deficits. Absent: facial droop, speech deficit - Skin Skin exam: Present: dry, intact, normal color, warm. Absent: rash Internal Medicine: Result - Labs CBC & Chem 7: 08/06/17 03:43 08/06/17 03:43 Labs: Short CBC 08/06/17 Range/Units 03:43 WBC 8.4 (4.3-11.1) K/mcL Hgb 10.3 L (11.5-15.4) g/dL Hct 34.9 L (35.3-44.9) % Plt Count 166 (140-400) K/mcL Neutrophils # 5.3 (1.6-8.9) K/mcL BMP 08/06/17 03:43 Sodium 140 Potassium 3.9 Chloride 102 Carbon Dioxide 29 BUN 20 Creatinine 0.89 Glucose 96 Calcium 7.6 L - ABG Interpretation ABG results: PT/INR, D-dimer PT 34.6 Seconds (9.4-12.1) H 08/06/17 03:43 - VTE Documentation of Mechanical Device: Graduated compression elastic hosiery Consult Discharge Plan - Plan Referrals: NONE,PCP [Primary Care Provider] - Addi Rivero DO [Partnered Physician] - 08/09/17 12:00 pm
[2017-08-06] MEDS ORDERED: *HR* Warfarin 3 MG TABLET PO ONE (18:00)
[2017-08-06] MEDS: Azithromycin 500 MG in D5% in Water 250 ML IVPB SCH (21:38)
[2017-08-07] MEDS: Insulin LISPRO 300 UNITS/3 ML VIAL SQ SCH ×5 (00:57→21:26)
[2017-08-07 04:25] LABS: Basophils % 0.3 %; Eosinophils # 0.2 K/mcL (0.0-0.6); Eosinophils % 2.3 %; Hematocrit 33.8 % (35.3-44.9); Hemoglobin 10.1 g/dL (11.5-15.4); Immature Granulocytes % 0.5 % (0-4); Lymphocytes # 1.5 K/mcL (0.6-4.6); Lymphocytes % 20.4 %; Mean Corpuscular HGB Conc 29.9 g/dL (31.6-35.5); Mean Corpuscular Hemoglobin 25.4 pg (28.0-33.3); Mean Corpuscular Volume 84.9 fL (83.0-100.0); Mean Platelet Volume 13.3 fL (9.4-12.4); Monocytes # 0.7 K/mcL (0.0-1.3); Monocytes % 9.5 %; Platelet Count 159 K/mcL (140-400); Red Blood Count 3.98 M/mcL (3.82-4.97); Red Cell Distribution Width 15.5 % (11.5-14.5)
[2017-08-07 04:41] LABS: Prothrombin Time 43.9 Seconds (9.4-12.1)
[2017-08-07 04:42] LABS: BUN/Creatinine Ratio 26 (6-26); Blood Urea Nitrogen 21 mg/dL (7-20); Calcium 7.6 mg/dL (8.6-10.8); Carbon Dioxide 32 mEq/L (19-29); Chloride 102 mEq/L (98-109); Glucose 98 mg/dL (70-99); Magnesium 1.6 mg/dL (1.6-2.6); Osmolality,Calculated 295 (280-300); Potassium 3.9 mEq/L (3.5-4.5); Sodium 141 mEq/L (136-145); eGFR For African Americans > 60 (> 60); eGFR For Non-African Americans > 60 (> 60)
[2017-08-07] MEDS: Magnesium Oxide 400 MG TABLET PO SCH (09:45)
[2017-08-07] MEDS: Cyanocobalamin (B-12) 1,000 MCG TABLET PO SCH (09:45)
[2017-08-07] MEDS: Furosemide 40 MG/4 ML VIAL IVP SCH ×2 (09:45→20:20)
[2017-08-07] MEDS: Metoprolol XL (24 HR) Succ 50 MG TAB.ER.24H PO SCH (09:45)
[2017-08-07] MEDS: Aspirin 81 MG TAB.CHEW PO SCH (09:45)
[2017-08-07] MEDS: *HR* HYDROcodone/Acet 5/325 mg TABLET PO PRN (09:58)
--- NOTE | 2017-08-07 15:00 | Internal Med Progress Note ---
Date of Encounter: 08/07/17 Time of Encounter: 08:55 - Assessment and plan (1) Community acquired pneumonia Current Visit: Yes Status: Acute Assessment and plan: Per chest xray. Denies cough. No leukocytosis or fever, pt is not requiring more 02 than baseline need of 2L. Lungs are clear. Unknown etiology, pt lives at home and denies recent hospitalization. Continue IV antibiotics Rocephin and Zithromax Nebulizer treatments Continuous pulse ox Maintain 2L 02, titrate to maintain sats >92% Qualifiers: Laterality: left Lung location: lower lobe of lung Qualified Code(s): J18.1 - Lobar pneumonia, unspecified organism (2) Chronic respiratory failure Current Visit: Yes Status: Acute Assessment and plan: Pt requires 2L 02 at home for baseline. Continue and titrate as needed to maintain sats > 92%. Pt is not requiring additional 02 above demand. Qualifiers: Respiratory failure complication: unspecified whether with hypoxia or hypercapnia Qualified Code(s): J96.10 - Chronic respiratory failure, unspecified whether with hypoxia or hypercapnia (3) Non-insulin dependent type 2 diabetes mellitus Current Visit: No Status: Chronic Assessment and plan: Continue SSI, accuchecks achs, and diabetic diet. Accuchecks are only slightly elevated. Continue to monitor. (4) Bilateral lower extremity edema Current Visit: Yes Status: Acute Assessment and plan: Pt has +4 pitting edema to BLE. Pt reports that this is chronic, with onset of a year ago. She states that her left foot has been chronically edematous since CVA in 2001. There is no appreciable visible difference since arrival, however, the edema does seem to pit more easily. She was recently placed on Lasix at home. Pt had an echo in 01/2016 that shows LVEF 50% with normal LV function, mild LVDD, atypical septal motion, no significant valvular dysfunction. Repeat BNP negative, 84. Pt has had approximately 2.2kg weight loss and only less than 200 ml difference between intake and output since arrival. Will add 20mg IV lasix to order and assess for effectiveness. Lasix 40mg IVP bid Low Sodium diet. 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 Continue Coumadin home, pharmacy to dose Fall precautions/bed alarm Close to nurses' station. Pt unable to use left side since CVA. (6) Atrial fibrillation Current Visit: Yes Status: Chronic Assessment and plan: LVEF 50-55% with mild MR and PFO present. Continue telemetry INR supratherapeutic today 4.0 Continue Coumadin, pharmacy to dose. Qualifiers: Atrial fibrillation type: unspecified Qualified Code(s): I48.91 - Unspecified atrial fibrillation (7) Morbid obesity with BMI of 45.0-49.9, adult Current Visit: Yes Status: Acute Assessment and plan: Chronic. Lifestyle changes. Continue diabetic diet, low sodium diet, daily weights, and fluid restriction. (8) Hypomagnesemia Current Visit: Yes Status: Resolved (9) Hypocalcemia Current Visit: Yes Status: Acute Assessment and plan: Calcium 7.6. Increased Calcium carbonate to 1000mg QID. Continue to monitor. (10) COPD (chronic obstructive pulmonary disease) Current Visit: No Status: Chronic Assessment and plan: Plan as above for pneumonia. Qualifiers: COPD type: unspecified COPD Qualified Code(s): J44.9 - Chronic obstructive pulmonary disease, unspecified (11) DVT prophylaxis Current Visit: Yes Status: Acute Assessment and plan: Continue Coumadin. - Time Spent With Patient less than 15 minutes - Subjective Interval history: Pt was seen and assessed at 0740. Patient was sleeping. She denies any chest pain, abdominal pain, nausea vomiting or diarrhea, no headaches. Today she states that she has left foot pain. ISADORA hose have been removed. She states that she is ready to go to the group home. - Constitutional Vitals: Temp Pulse Resp BP Pulse Ox 97.9 F 90 16 101/72 94 08/07/17 11:54 08/07/17 11:54 08/07/17 11:54 08/07/17 11:54 08/07/17 11:54 General appearance: Present: cooperative, A&O X 3, morbidly obese, pleasant, no acute distress, answers questions appropriately - Head Head exam: Present: atraumatic, normal inspection, normocephalic - Eye Eye exam: Present: normal appearance, conjuntiva pink, sclera anicteric - Neck Neck exam general surgery: Present: supple, trachea midline. Absent: lymphadenopathy - Respiratory Respiratory exam: Present: decreased breath sounds. Absent: accessory muscle use, chest wall tenderness, rales, rhonchi, wheezes - Cardiovascular Cardiovascular exam: Present: RRR, +S1, +S2. Absent: diastolic murmur, gallop, rubs, systolic murmur - GI/Abdominal GI/Abdominal exam: Present: distended, normal bowel sounds, soft, no peritoneal signs. Absent: tenderness - Extremities Exam Extremities exam: Present: pedal edema, tenderness, warm, radial pulses palpable and symmetrical. Absent: calf tenderness, cyanotic, full ROM, normal capillary refill - Neurological Exam Neurological exam: Present: alert, motor sensory deficit, oriented X3, no focal deficits, pronater drift. Absent: strengths equal and symetr throughout, facial droop, speech deficit - Skin Skin exam: Present: dry, intact, normal color, warm. Absent: rash Internal Medicine: Result - Labs CBC & Chem 7: 08/07/17 03:48 08/07/17 03:48 Labs: Short CBC 08/07/17 Range/Units 03:48 WBC 7.5 (4.3-11.1) K/mcL Hgb 10.1 L (11.5-15.4) g/dL Hct 33.8 L (35.3-44.9) % Plt Count 159 (140-400) K/mcL Neutrophils # 5.0 (1.6-8.9) K/mcL BMP 08/07/17 03:48 Sodium 141 Potassium 3.9 Chloride 102 Carbon Dioxide 32 H BUN 21 H Creatinine 0.82 Glucose 98 Calcium 7.6 L - ABG Interpretation ABG results: PT/INR, D-dimer PT 43.9 Seconds (9.4-12.1) H* 08/07/17 03:48 - VTE Documentation of Mechanical Device: Graduated compression elastic hosiery Consult Discharge Plan - Plan Referrals: NONE,PCP [Primary Care Provider] - Addi Rivero DO [Partnered Physician] - 08/09/17 12:00 pm
[2017-08-07] MEDS ORDERED: Furosemide 20 MG/2 ML VIAL IVP ONE (15:14)
[2017-08-07] MEDS: Azithromycin 500 MG in D5% in Water 250 ML IVPB SCH (22:10)
[2017-08-08] MEDS: *HR* HYDROcodone/Acet 5/325 mg TABLET PO PRN ×2 (03:34→20:48)
[2017-08-08 04:22] LABS: INR 3.9
[2017-08-08 04:30] LABS: Prothrombin Time 43.5 Seconds (9.4-12.1)
--- NOTE | 2017-08-08 08:00 | Internal Med Progress Note ---
<Ana Paula Frausto - Last Filed: 08/08/17 08:28> Date of Encounter: 08/08/17 Time of Encounter: 07:58 - Assessment and plan (1) Community acquired pneumonia Current Visit: Yes Status: Acute Assessment and plan: CXR from 08/03/17 showed cardiomegaly without overt pulmonary edema, left lower lobe opacity with silhouetting of the left hemidiaphragm representing consolidation from pneumonia vs atalectasis. Plan: Rocephin day 6 got 4 days zithromax, which was discontinued today. Nebulizer treatments Continuous pulse ox titrate Oxygen as needed. DuoNeb PRN awaiting discharge to [facility]. Qualifiers: Laterality: left Lung location: lower lobe of lung Qualified Code(s): J18.1 - Lobar pneumonia, unspecified organism (2) Chronic respiratory failure Current Visit: Yes Status: Acute Assessment and plan: likely multifactorial in setting of end stage COPD, community acquired pneumonia. Pt requires 2L 02 at home for baseline. Continue and titrate as needed Qualifiers: Respiratory failure complication: unspecified whether with hypoxia or hypercapnia Qualified Code(s): J96.10 - Chronic respiratory failure, unspecified whether with hypoxia or hypercapnia (3) Bilateral lower extremity edema Current Visit: Yes Status: Acute Assessment and plan: Pt has +4 pitting edema to BLE. Pt reports that this is chronic, with onset of a year ago. She states that her left foot has been chronically edematous since CVA in 2001. There is no appreciable visible difference since arrival, however, the edema does seem to pit more easily. She was recently placed on Lasix at home. patient states she takes lasix at home, but does not weight herself regularly because she cannot stand up. she does not follow a fluid restricted diet at home. etiology likely secondary to non compliance. lifestyle modifications encouraged. Lasix 40mg IVP bid Low Sodium diet. Daily weights Strict I and O 1.5 liter fluid restriction (4) CHF (congestive heart failure) Current Visit: Yes Status: Acute Assessment and plan: plan as above. Qualifiers: Congestive heart failure type: diastolic Congestive heart failure chronicity: chronic Qualified Code(s): I50.32 - Chronic diastolic (congestive ) heart failure (5) Non-insulin dependent type 2 diabetes mellitus Current Visit: No Status: Chronic Assessment and plan: Continue SSI, accuchecks achs, and diabetic diet. 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 Continue Coumadin home, pharmacy to dose Fall precautions/bed alarm Close to nurses' station. patient has left sided residual deficits since CVA (7) Atrial fibrillation Current Visit: Yes Status: Chronic Assessment and plan: Echo from 08/04/17 showed LVEF 50-55%, normal RV size and function, mild mitral regurg, no pulmonary HTN, PFO present with saline contrast injection. Patient is on anticoagulation with coumadin. Qualifiers: Atrial fibrillation type: unspecified Qualified Code(s): I48.91 - Unspecified atrial fibrillation (8) Morbid obesity with BMI of 45.0-49.9, adult Current Visit: Yes Status: Acute Assessment and plan: lifestyle modifications advised (9) COPD (chronic obstructive pulmonary disease) Current Visit: No Status: Chronic Assessment and plan: Plan as above for pneumonia. Qualifiers: COPD type: unspecified COPD Qualified Code(s): J44.9 - Chronic obstructive pulmonary disease, unspecified (10) DVT prophylaxis Current Visit: Yes Status: Acute Assessment and plan: Coumadin. - Subjective Interval history: 82F evaluated at bedside. patient denies nausea, vomiting, diarrhea, fever, chills, chest pain, shortness of breath. her only complaint is her bilateral lower extremity pitting edema. - Constitutional Vitals: Temp Pulse Resp BP Pulse Ox 98.1 F 94 16 91/62 97 08/08/17 07:45 08/08/17 07:45 08/08/17 07:45 08/08/17 07:45 08/08/17 07:45 General appearance: Present: cooperative, A&O X 3, morbidly obese, no acute distress, answers questions appropriately - Head Head exam: Present: atraumatic, normocephalic - Neck Neck exam general surgery: Present: supple, trachea midline - Respiratory Additional comments: decreased breath sounds present. - Cardiovascular Cardiovascular exam: Present: irregular rhythm - GI/Abdominal Additional comments: obese, soft, distended, non tender, positive bowel sounds. - Extremities Exam Additional comments: +4 bilateral lower extremity pitting edema going up to the mid spence. - Neurological Exam Neurological exam: Present: alert, oriented X3, no focal deficits - Psychiatric Psychiatric exam: Present: normal affect, normal mood Internal Medicine: Result - Labs CBC & Chem 7: 08/07/17 03:48 08/07/17 03:48 - ABG Interpretation ABG results: PT/INR, D-dimer PT 43.5 Seconds (9.4-12.1) H* 08/08/17 04:00 - VTE Documentation of Mechanical Device: Graduated compression elastic hosiery Consult Discharge Plan - Plan Referrals: NONE,PCP [Primary Care Provider] - Addi Rivero DO [Partnered Physician] - 08/09/17 12:00 pm <Ryan Minor - Last Filed: 08/08/17 12:16> Date of Encounter: 08/08/17 - Constitutional Vitals: Temp Pulse Resp BP Pulse Ox 98.2 F 117 17 110/74 95 08/08/17 10:42 08/08/17 10:42 08/08/17 10:42 08/08/17 10:42 08/08/17 10:42 Internal Medicine: Result - Labs CBC & Chem 7: 08/07/17 03:48 08/08/17 10:00 Labs: BMP 08/08/17 10:00 Sodium 138 Potassium 3.8 Chloride 98 Carbon Dioxide 36 H BUN 21 H Creatinine 0.85 Glucose 127 H Calcium 7.9 L - ABG Interpretation ABG results: PT/INR, D-dimer PT 43.5 Seconds (9.4-12.1) H* 08/08/17 04:00 - Attending Attestation Chronic lower extremity edema mainly on the left lower extremity, start Shivam wraps and continue Lasix Discharge to ECF in stable in the morning, hold warfarin tonight I examined this patient and my medical decision-making was reviewed with the Resident Physician. I agree with the documented findings, disposition and treatment plan as described except to the extent set forth below.
[2017-08-08] MEDS: Insulin LISPRO 300 UNITS/3 ML VIAL SQ SCH ×4 (08:02→21:04)
[2017-08-08] MEDS: Aspirin 81 MG TAB.CHEW PO SCH (09:32)
[2017-08-08] MEDS: Magnesium Oxide 400 MG TABLET PO SCH (09:42)
[2017-08-08] MEDS: Cyanocobalamin (B-12) 1,000 MCG TABLET PO SCH (09:42)
[2017-08-08 10:24] LABS: BUN/Creatinine Ratio 25 (6-26); Blood Urea Nitrogen 21 mg/dL (7-20); Calcium 7.9 mg/dL (8.6-10.8); Carbon Dioxide 36 mEq/L (19-29); Chloride 98 mEq/L (98-109); Glucose 127 mg/dL (70-99); Osmolality,Calculated 291 (280-300); Potassium 3.8 mEq/L (3.5-4.5); Sodium 138 mEq/L (136-145); eGFR For African Americans > 60 (> 60); eGFR For Non-African Americans > 60 (> 60)
[2017-08-08] MEDS: Metoprolol XL (24 HR) Succ 50 MG TAB.ER.24H PO SCH (11:22)
[2017-08-08] MEDS: Furosemide 40 MG/4 ML VIAL IVP SCH ×2 (11:22→20:49)
[2017-08-09 01:58] LABS: Immature Granulocytes % 0.3 % (0-4)
[2017-08-09 02:00] LABS: Basophils % 0.4 %; Eosinophils # 0.2 K/mcL (0.0-0.6); Eosinophils % 2.9 %; Hematocrit 31.6 % (35.3-44.9); Hemoglobin 9.5 g/dL (11.5-15.4); Immature Platelets 8.8 % (1.1-6.1); Lymphocytes # 1.9 K/mcL (0.6-4.6); Lymphocytes % 24.7 %; Mean Corpuscular HGB Conc 30.1 g/dL (31.6-35.5); Mean Corpuscular Hemoglobin 25.9 pg (28.0-33.3); Mean Corpuscular Volume 86.1 fL (83.0-100.0); Mean Platelet Volume 12.2 fL (9.4-12.4); Monocytes # 0.8 K/mcL (0.0-1.3); Neutrophils # 4.8 K/mcL (1.6-8.9); Platelet Count 138 K/mcL (140-400); Red Blood Count 3.67 M/mcL (3.82-4.97); Red Cell Distribution Width 15.3 % (11.5-14.5); Segmented Neutrophils % 61.7 %
[2017-08-09 02:11] LABS: INR 3.5; Prothrombin Time 38.9 Seconds (9.4-12.1)
[2017-08-09 02:40] LABS: Hypochromasia Present (Not Present); Platelet Estimate Decreased (Normal)
[2017-08-09 02:41] LABS: Anisocytosis 1+ (Not Present)
[2017-08-09 03:09] LABS: BUN/Creatinine Ratio 24 (6-26); Calcium 7.7 mg/dL (8.6-10.8); Carbon Dioxide 32 mEq/L (19-29); Chloride 100 mEq/L (98-109); Glucose 104 mg/dL (70-99); Osmolality,Calculated 295 (280-300); Potassium 3.6 mEq/L (3.5-4.5); Sodium 140 mEq/L (136-145); eGFR For African Americans > 60 (> 60); eGFR For Non-African Americans 50 (> 60)
[2017-08-09 03:12] LABS: Blood Urea Nitrogen 25 mg/dL (7-20)
[2017-08-09 06:38] VITALS: BP 120/74
[2017-08-09] MEDS: Metoprolol XL (24 HR) Succ 50 MG TAB.ER.24H PO SCH (08:38)
[2017-08-09] MEDS: Furosemide 40 MG/4 ML VIAL IVP SCH (08:38)
[2017-08-09] MEDS: Insulin LISPRO 300 UNITS/3 ML VIAL SQ SCH ×2 (08:38→13:10)
[2017-08-09] MEDS: Magnesium Oxide 400 MG TABLET PO SCH (08:39)
[2017-08-09] MEDS: Aspirin 81 MG TAB.CHEW PO SCH (08:39)
[2017-08-09] MEDS: Cyanocobalamin (B-12) 1,000 MCG TABLET PO SCH (08:39)
--- NOTE | 2017-08-09 10:01 | Discharge Summary ---
Addendum entered and electronically signed by Ana Paula Frausto DO 08/09/17 10:47 : additional instruction: re start coumadin at 3mg after holding for two days. please re check INR at that time as well. Original Note: <Ana Paula Frausto - Last Filed: 08/09/17 10:32> Date of Encounter: 08/09/17 Time of Encounter: 09:57 - Discharge Diagnosis (1) Community acquired pneumonia Priority: Primary Status: Acute Qualifiers: Laterality: left Lung location: lower lobe of lung Qualified Code(s): J18.1 - Lobar pneumonia, unspecified organism (2) Chronic respiratory failure Priority: Secondary Status: Acute Qualifiers: Respiratory failure complication: unspecified whether with hypoxia or hypercapnia Qualified Code(s): J96.10 - Chronic respiratory failure, unspecified whether with hypoxia or hypercapnia (3) Bilateral lower extremity edema Priority: Secondary Status: Acute (4) CHF (congestive heart failure) Priority: Secondary Status: Acute Qualifiers: Congestive heart failure type: diastolic Congestive heart failure chronicity: chronic Qualified Code(s): I50.32 - Chronic diastolic (congestive ) heart failure (5) Non-insulin dependent type 2 diabetes mellitus Priority: Secondary Status: Chronic (6) 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 Priority: Secondary Status: Chronic (7) Atrial fibrillation Priority: Secondary Status: Chronic Qualifiers: Atrial fibrillation type: unspecified Qualified Code(s): I48.91 - Unspecified atrial fibrillation (8) Morbid obesity with BMI of 45.0-49.9, adult Priority: Secondary Status: Acute (9) COPD (chronic obstructive pulmonary disease) Priority: Secondary Status: Chronic Qualifiers: COPD type: unspecified COPD Qualified Code(s): J44.9 - Chronic obstructive pulmonary disease, unspecified (10) DVT prophylaxis Priority: Secondary Status: Acute - Discharge Medications Prescriptions: HYDROcodone/Acet 5/325 mg [[place] 5-325 mg] 1 tab PO Q6H PRN #20 tablet PRN Reason: Moderate Pain (4-6) Home Medications: Cyclosporine [Restasis] 1 each OP BID 01/07/16 [History] Metoprolol XL (24 HR) Succ [Toprol Xl] 50 mg PO DAILY 01/07/16 [History] Phenytoin ER [Dilantin ER] 400 mg PO DAILY 01/07/16 [History] Prazosin [Minipress] 1 mg PO BID 01/07/16 [History] Sertraline [Zoloft] 100 mg PO DAILY 01/07/16 [History] Cyanocobalamin (Vitamin B-12) [Vitamin B12] 1,000 mcg PO DAILY 08/03/17 [History ] Furosemide [Lasix] 40 mg PO DAILY 08/03/17 [History] Glimepiride [Amaryl] 4 mg PO BID 08/03/17 [History] Levothyroxine [Synthroid] 50 mcg PO 0630 08/03/17 [History] Potassium Chloride [K-Tab ER] 20 meq PO DAILY 08/03/17 [History] Acetaminophen [Tylenol] 650 mg PO Q6HR PRN tablet 08/09/17 [Rx] Aspirin 81 mg PO DAILY tab.chew 08/09/17 [Rx] HYDROcodone/Acet 5/325 mg [[place] 5-325 mg] 1 tab PO Q6H PRN #20 tablet 08/09/17 [Rx] Ipratropium/Albuterol Neb [Duoneb] 3 ml IH [id number] PRN inhsol 08/09/17 [Rx] Warfarin [Coumadin] 2.5 mg PO Q48H 08/09/17 [History] Warfarin [Coumadin] 5 mg PO Q48H 08/09/17 [History] Allergies/Adverse Reactions: 3 Allergy/AdvReac Type Severity Reaction Status Date / Time No Known Allergies Allergy Verified 01/07/16 15:15 Date of admission: 08/05/17 14:56 Primary care physician: PCP NONE - Patient Status Disposition: Transfer SNF Condition: Fair Functional capacity at discharge: bed bound Overall status at discharge: patient is not back to baseline - Discharge Instructions Instructions: Hydrocodone/Acetaminophen (By mouth) Follow Up With: NONE,PCP [Primary Care Provider] - Additional Instructions: continue diuresis. pain medication PRN Please wrap bilateral lower extremities to help with edema. PT/OT hold warfarin for supratherapeutic INR - Diet and Activity Activity: as per physical therapy Diet: diabetic diet, low fat, low cholesterol Hospital course: Ms. Bernardo is a 82 year old female with PMHx of COPD, Afib (on coumadin) CVA in 2000 with residual left sided paralysis, DM, HLD, HTn, previous MS in 2000, hypothyroidism, diastolic CHF. Patient arrived to ED on 08/03/17 with chief complaint of severe bilateral pedal edema which had been worsening for the past several months. she also reported general weakness and shortness of breath as well. chest xray showed cardiomegaly, let lower lobe opacity with silhouetting of the left hemidiaphragm that may represent consolidation from pneumonia. patient was placed on azithromycin and ceftriaxone for community acquired pneumonia. she received a full 7 day course of antibiotics. she also received nebulizer treatments and oxygen suppelementation. she was placed on low sodium diet, strict I/O, and fluid restriction. she was diuresed daily with 40mg lasix BID without significant improvement in her pedal edema. patient had her legs wrapped to help with her edema but she could not tolerate this so the wraps had to be taken off. patient had declined physical therapy services while in the hospital. her INR has been supratherapeutic so her coumadin was held. echo on showed LVEF 50-55%, normal RV size and function, mild mitral regurg, no pulmonary HTN, PRO present. patient showed improvement in respiratory status during the course of her hospitalization. she will be discharged to [facility] to [facility]-term in stable condition. Plan: re check INR and start coumadin as indicated. continue with diuresis with lasix please wrap bilateral lower extremities to help with edema. - Time Spent with Patient Total time spent providing and/or coordinating discharge services: Less than 30 minutes - Constitutional Vitals: Temp Pulse Resp BP Pulse Ox 97.8 F 90 16 120/74 98 08/09/17 06:33 08/09/17 06:33 08/09/17 06:33 08/09/17 06:33 08/09/17 06:33 General appearance: Present: cooperative, A&O X 3, morbidly obese, no acute distress, answers questions appropriately - Head Head exam: Present: atraumatic, normocephalic - Neck Neck exam general surgery: Present: supple, trachea midline - Respiratory Respiratory exam: Present: rales - Cardiovascular Cardiovascular exam: Present: RRR, +S1, +S2 - GI/Abdominal GI/Abdominal exam: Present: normal bowel sounds, soft. Absent: tenderness Additional comments: distended, obese, non tender, positive bowel sounds - Extremities Exam Additional comments: +4 bilateral lower extremity pitting edema. legs were not wrapped. - Neurological Exam Neurological exam: Present: alert, oriented X3 - Psychiatric Psychiatric exam: Present: depressed - Skin Skin exam: Present: intact - VTE Documentation of Mechanical Device: Graduated compression elastic hosiery <Ryan Minor Jordyn - Last Filed: 08/09/17 13:51> Date of Encounter: 08/09/17 Date of admission: 08/05/17 14:56 Primary care physician: PCP NONE Hospital course: Ms. Bernardo is a 82 year old female - Time Spent with Patient Total time spent providing and/or coordinating discharge services: - Constitutional Vitals: Temp Pulse Resp BP Pulse Ox 97.8 F 90 16 120/74 98 08/09/17 06:33 08/09/17 06:33 08/09/17 06:33 08/09/17 06:33 08/09/17 06:33 - Attending Attestation Hold warfarin for 2 days, monitor as outpatient Time spent on this discharge 25 minutes I examined this patient and my medical decision-making was reviewed with the Resident Physician. I agree with the documented findings, disposition and treatment plan as described except to the extent set forth below.
--- NOTE | 2017-08-09 10:32 | Physician Discharge Referral ---
Addendum entered and electronically signed by Ana Paula Frausto DO 08/09/17 10:46 : re start coumadin at 3mg after holding for two days. please re check INR at that time as well. 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 Priority: Secondary Status: Chronic (7) Atrial fibrillation Priority: Secondary Status: Chronic (8) Morbid obesity with BMI of 45.0-49.9, adult Priority: Secondary Status: Acute (9) COPD (chronic obstructive pulmonary disease) Priority: Secondary Status: Chronic (10) DVT prophylaxis Priority: Secondary Status: Acute Prognosis: Fair Aware of Diagnosis: Patient, Family Aware of Prognosis: Patient, Family - Transfer Medications Prescriptions: HYDROcodone/Acet 5/325 mg [[place] 5-325 mg] 1 tab PO Q6H PRN #20 tablet PRN Reason: Moderate Pain (4-6) Home Medications: Cyclosporine [Restasis] 1 each OP BID 01/07/16 [History] Metoprolol XL (24 HR) Succ [Toprol Xl] 50 mg PO DAILY 01/07/16 [History] Phenytoin ER [Dilantin ER] 400 mg PO DAILY 01/07/16 [History] Prazosin [Minipress] 1 mg PO BID 01/07/16 [History] Sertraline [Zoloft] 100 mg PO DAILY 01/07/16 [History] Cyanocobalamin (Vitamin B-12) [Vitamin B12] 1,000 mcg PO DAILY 08/03/17 [History ] Furosemide [Lasix] 40 mg PO DAILY 08/03/17 [History] Glimepiride [Amaryl] 4 mg PO BID 08/03/17 [History] Levothyroxine [Synthroid] 50 mcg PO 0630 08/03/17 [History] Potassium Chloride [K-Tab ER] 20 meq PO DAILY 08/03/17 [History] Acetaminophen [Tylenol] 650 mg PO Q6HR PRN tablet 08/09/17 [Rx] Aspirin 81 mg PO DAILY tab.chew 08/09/17 [Rx] HYDROcodone/Acet 5/325 mg [[place] 5-325 mg] 1 tab PO Q6H PRN #20 tablet 08/09/17 [Rx] Ipratropium/Albuterol Neb [Duoneb] 3 ml IH [id number] PRN inhsol 08/09/17 [Rx] Warfarin [Coumadin] 2.5 mg PO Q48H 08/09/17 [History] Warfarin [Coumadin] 5 mg PO Q48H 08/09/17 [History] Allergies/Adverse Reactions: 3 Allergy/AdvReac Type Severity Reaction Status Date / Time No Known Allergies Allergy Verified 01/07/16 15:15 - Respiratory Orders Oxygen / L per min (2) Smoking Cessation: Smoking cessation has been advised. For more information, call the [employer] Line at 6-429-PMSINOW. - Lab Orders Lab Orders: Other (include drug levels w/frequency) (INR) - Ancillary Orders May use pressure relief devices daily prn, May consult with Dentist, Separating Machine Operator, Autocutter PRN - Mobility Orders Chair - Rehabiliation Orders Rehab Potential: Fair Rehab Orders: ROM Exercises, Evaluation for Physical Therapy, Evaluation for Occupational Therapy - Treatments Skin tear care topically daily PRN per policy, May check for fecal impaction rectally daily PRN List/Other: needs bilateral lower extremities wrapped daily to help with edema. - Diet Orders Cardiac (cardiac diabetic diet) CERTIFICATION: I certify that the transfer of the above named patient to an Extended Care Facility is necessary for the continuing treatment of the diagnosis listed. The above information is true and accurate reflection of patient's current condition. Confidential - Redisclosure prohibited without a patient's written consent. <Ryan Minor H - Last Filed: 08/09/17 13:52> - Respiratory Orders Smoking Cessation: Smoking cessation has been advised. For more information, call the [employer] Quit Line at 7-119-YQYV-NOW. CERTIFICATION: I certify that the transfer of the above named patient to an Extended Care Facility is necessary for the continuing treatment of the diagnosis listed. The above information is true and accurate reflection of patient's current condition. Confidential - Redisclosure prohibited without a patient's written consent. Hold warfarin for 2 days, monitor as outpatient Time spent on this discharge 25 minutes I examined this patient and my medical decision-making was reviewed with the Resident Physician. I agree with the documented findings, disposition and treatment plan as described except to the extent set forth below.
[2017-08-09] MEDS: *HR* HYDROcodone/Acet 5/325 mg TABLET PO PRN (14:43)
== END 2017-08-09 15:20 | DRG 190 ==
LOC: EMEROO 12:00 → 3BNU 12:00 → SUATTDRO 08-05 14:56
PROVIDERS: ADMIT Registered Nurse; ATTEND Internal Medicine